=== PATIENT | female | born 1955 ===

== ENCOUNTER → 2024-03-06 | Outpatient (CLI) | payer MEDICARE ==
[2024-03-06 11:24] LABS: INR 0.9 (<1.2); Partial Thromboplastin Time 26.2 sec (22.0-30.0)
[2024-03-06 15:07] LABS: HCT 45.5 % (37.2-46.3); HGB 14.7 g/dL (12.0-15.0); MCH 28.7 pg (27.0-32.0); MCHC 32.3 g/dL (32.0-37.0); MCV 88.7 FL (80.0-97.0); Mean Platelet Volume 11.9 FL (9.5-12.2); NRBC Per 100 WBC 0 X 10*3/uL (0.00-0.01); Platelet Count 254 X 10*3/uL (140-440); RBC 5.13 X 10*6/uL (4.10-5.20); RDW 13.2 % (11.5-14.5); WBC 6.37 X 10*3/uL (4.50-10.00)
[2024-03-06 15:15] LABS: ALT 32 U/L (8-44); AST 23 U/L (13-35); Albumin 4.5 g/dL (3.8-4.9); Albumin/Globulin Ratio 1.73 Ratio (1.60-3.17); Alkaline Phosphatase 85 U/L (41-126); Blood Urea Nitrogen 12.4 mg/dL (9.0-27.0); Calcium 10.2 mg/dL (8.7-10.3); Carbon Dioxide 27.7 mmol/L (21.6-31.8); Chloride 100 mmol/L (96-109); Globulin 2.6 g/dL (1.6-3.3); Glucose 114 mg/dL (70-110); Sodium 141 mmol/L (135-145); Total Bilirubin 0.5 mg/dL (0.3-1.2); Total Protein 7.1 g/dL (6.2-8.2)
== END | disposition home or self-care (01) ==
LOC: LABWHC1 09:46
PROVIDERS: ATTEND Orthopaedic Surgery
DX: Z01.812 Encounter for preprocedural laboratory examination (principal)
CPT/HCPCS: 36415; 80053; 85027; 85610; 85730; 86850; 86900; 86901; 87070; 93005

== ENCOUNTER → 2024-03-21 | Outpatient (CLI) | payer MEDICARE | END | disposition home or self-care (01) | LOC: LABPAT 11:21 | PROVIDERS: ATTEND Orthopaedic Surgery | DX: Z01.812 Encounter for preprocedural laboratory examination (principal); Z22.322 Carrier or suspected carrier of Methicillin resistant Staphylococcus aureus | CPT/HCPCS: 86850; 86900; 86901 ==

== ENCOUNTER 2024-03-26 13:50 | Day surgery (SDC) | payer MEDICARE ==
[2024-03-21 09:34] VITALS: BMI 35.9
[~2024-03-26 13:50] MED LIST: HYDROcodone/APAP 7.5-325MG 1 EACH TAB PO PRN; HYDROmorphone 0.5 MG/0.5 ML SYRINGE IVP PRN; MAGNESIUM HYDROXIDE 2,400 MG/30 ML CUP PO PRN; MIDAZOLAM 2 MG/2 ML VIAL IV PRN; NALOXONE 0.4 MG/ML 1 ML VIAL IV PRN; ONDANSETRON 4 MG/2 ML VIAL IVP PRN; TRANEXAMIC 1,000 MG/100ML-NACL 1,000 MG in SALINE 1 100ML.BAG IVPB PRN
[2024-03-26] MEDS: LACTATED RINGERS 1,000 ML IV SCH (14:25)
[2024-03-26] MEDS: DEXAMETHASONE SOD PHOSPHATE 4 MG/ML 1 ML VIAL IV ONE (14:28)
[2024-03-26] MEDS: ONDANSETRON 4 MG/2 ML VIAL IVP ONE (14:29)
[2024-03-26] MEDS: ACETAMINOPHEN TAB 500 MG TAB PO PRN (14:29)
[2024-03-26] MEDS: GABAPENTIN 300 MG CAP PO PRN (14:30)
[2024-03-26] MEDS: MELOXICAM 7.5 MG TAB PO PRN (14:30)
[2024-03-26] MEDS: IV FLUID CONTINUATION 1,000 ML IV ONE (14:35)
[2024-03-26] MEDS: MIDAZOLAM 2 MG/2 ML VIAL IVP ONE (14:45)
[2024-03-26] MEDS: fentaNYL (PF) 50 MCG/ML 2 ML AMP IVP ONE (14:47)
--- NOTE | 2024-03-26 15:41 | P.ANPRN ---
Procedure Note - Anesthesia - Nerve Block Performed Left Julio Single Time Out Performed: Yes Date of Procedure: 03/26/24 Procedure Start Time: 14:45 Procedure Stop Time: 14:52 Location of Patient: PreOp Indication: Acute Post-Operative Pain, Requested by Surgeon Sedation Type: Sedate with meaningful contact maintained Preparation: Sterile Prep Position: Supine Needle Types: Pajunk Needle Gauge: 21 Ultrasound used to visualize needle placement: Yes Ultrasound used to observe medication spread: Yes Injectate: 0.5% Ropivacaine (see comment for volume) (20 ml + 10 ml NS + 4 mg Dexamethasone) Blood Aspirated: No Pain Paresthesia on Injection Noted: No Resistance on Injection: Normal Image Stored and Saved: Yes Events: Uneventful and Well Tolerated
[2024-03-26] MEDS ORDERED: MIDAZOLAM 2 MG/2 ML VIAL ONE (15:42)
[2024-03-26] MEDS ORDERED: fentaNYL (PF) 50 MCG/ML 2 ML AMP ONE (15:42)
[2024-03-26] MEDS ORDERED: DEXAMETHASONE SOD PHOSPHATE 4 MG/ML 1 ML VIAL ONE (15:42)
[2024-03-26] MEDS ORDERED: PHENYLEPHRINE-0.9% NACL SYG 1,000 MCG/10 ML SYRINGE ONE (15:42)
[2024-03-26] MEDS ORDERED: ROPIVACAINE 5 MG/ML 30 ML VIAL ONE (15:42)
[2024-03-26] MEDS ORDERED: TRANEXAMIC 1,000 MG/100ML-NACL PREMIX BAG ONE (15:42)
[2024-03-26] MEDS ORDERED: SODIUM CHLORIDE 0.9% (PF) 10 ML VIAL ONE (15:42)
[2024-03-26] MEDS ORDERED: PROPOFOL 10 MG/ML 20 ML VIAL IV ONE (15:42)
[2024-03-26] MEDS: ROPIVACAINE 5 MG/ML 30 ML VIAL MISCELLANE ONE ×2 (16:15→16:50)
[2024-03-26] MEDS: ceFAZolin 1,000 MG in SODIUM CHLORIDE 0.9% 1,000 ML IRRIGATION ONE (16:20)
[2024-03-26] MEDS: LACTATED RINGERS 1,000 ML IV ONE (16:29)
--- NOTE | 2024-03-26 16:55 | P.OP ---
Date of Procedure: 03/26/24 Preoperative Diagnosis: Severe osteoarthritis left hip Postoperative Diagnosis: Severe osteoarthritis left hip Procedure(s) Performed: Left total hip arthroplasty with a direct anterior approach Implants: [employer] Polarstem standard size 2 with a collar [employer] R3, 3 hole hemispherical acetabular shell, 48 mm [employer] Reflection 6.5 mm cancellus screw, 25 mm 2 [employer] R3, XLPE 20 acetabular liner [employer] Oxinium femoral head 32 mm, +0 All components were press-fit. The articulation is Oxinium on polyethylene. Anesthesia: spinal Surgeon: Raul Avalos Mobile Application Development Lead #1: Zina Sommer Estimated Blood Loss (ml): 200 Pathology: none sent Condition: stable Disposition: PACU Indications for Procedure: After failure of conservative treatment we discussed the surgical and nonsurgi yan treatment options at length. Patient wishes to proceed with a total hip arthroplasty with a direct anterior approach. Complications specific to this procedure were discussed at length, including but not limited to infection, leg length discrepancy, dislocation, nerve injury, and fracture. Covid-19 was also discussed at length with the patient, and they are aware of the current policies and procedures. The patient was given the option of delaying surgery, but they elect to proceed knowing these risks. Patient is aware of all these complications and informed consent was obtained Operative Findings: The operative findings are consistent with severe osteoarthritis of the left hip Description of Procedure: The patient was seen and evaluated in the preoperative area and the consent was reviewed. The operative site was marked with a skin marker. The patient verified the procedure and operative site. A SAMARA block was placed by anesthesia in the preoperative area. The patient was then brought to the operating room and given preoperative antibiotics intravenously. 1 g of Tranexamic acid was also given intravenously. A spinal anesthetic was administered by the anesthesia department. The patient was then placed on the Hunger[place] table with the bony prominences well-padded. The hip area was then prepped with a ChloraPrep solution and draped in the usual sterile fashion. A universal timeout was then performed, which confirmed the patient's name, surgical site, ALLERGIES, and procedure being performed on the consent. Next the incision site was located at 1 cm distal and 4 cm lateral to the anterior superior iliac spine. The skin and subcutaneous tissues were sharply incised. Incision was carefully dissected down to the fascia overlying the tensor fascia stcaey muscle. This fascia was then incised in line with the muscle fibers. Care was taken to stay laterally in order to avoid injuring the lateral femoral cu taneous nerve. Next, using blunt finger dissection, the tensor fascia stacey muscle was dissected off its investing fascia. The muscle was then carefully retracted laterally with a cobra retractor over the lateral neck of the femur. Next, the circumflex vessels were identified and cauterized using the Aquamantis device. The anterior hip capsule was then exposed. The capsule was then opened and an inverted T fashion. The retractors were then placed intracapsularly. The retractors were maintained intracapsular throughout the procedure. The proximal femur was then visualized. Fluoroscopic x-rays were then taken in order to evaluate the preoperative leg lengths. A small amount of traction was placed on the leg. The femoral neck was then osteotomized at the appropriate level above the lesser trochanter. A small wedge of bone was then removed from the remaining femoral head. Next, using a corkscrew the femoral head was removed from the acetabulum. On gross visual inspection, the femoral head had complete loss of articular cartilage and multiple periarticular osteophytes. The femoral head was then measured. Attention was then turned to the acetabulum. The acetabulum was exposed and any remaining labrum was excised. Sequential reaming of the acetabulum was performed using fluoroscopic guidance until there was a good bed of bleeding cancellus bone. When the appropriate size was reached, a trial was then placed. The position and fit of the trial was checked with fluoroscopy. The trial was then removed. Then, using fluoroscopic guidance, the final implant was impacted at 20 of anteversion and 40 of abduction, and fully seated in the acetabulum. 2 screws were then placed in the acetabulum. Again fluoroscopy was used to check position of the screws. Next, the liner was then impacted, with a 20 elevated liner located in the anterior superior quadrant. Component locking was confirmed. Attention was then directed to the femur. With the aid of the Hungerford table, the femur was externally rotated to approximately 130, extended, and adducted under the opposite leg. A side hook was then placed under the proximal femur, and the side hook elevator was used to elevate the proximal femur while releasing the capsule. Retractors were then placed. A capsular release was performed, as well as a release of the conjoined tendon, which afforded excellent visua lization of the proximal femur. Next, a box osteotome was used to lateralize the proximal femur. A factory hand was then used to locate the femoral canal. Sequential broaching was then performed with appropriate size which afforded excellent fixation in the proximal femur. A trial was then placed with appropriate head and neck, and the hip was gently reduced with the aid of the Hungerford table. Fluoroscopy was then used to check position of the components, as well as to evaluate the leg lengths and offset. The leg lengths and offset were measured as closely as possible to ensure stability of the hip. The hip was then gently dislocated and the trials were then removed. Final implants were then impacted and the hip was again reduced. Final fluoroscopic x-rays confirmed that the components were in anatomic position. The leg lengths and offset were measured and were found to coincide with the trial measurements. The hip was also taken through range of motion, and found to be stable. The hip was then copiously irrigated with antibiotic solution with pulsatile lavage. The hip was then irrigated with Irrisept solution. The soft tissues were then injected with a ropivacaine solution. A second dose of 1 g of Tranexamic acid was also given intravenously. The fascia was then closed with 2-0 strata fix suture. The subcutaneous tissue was closed with 3-0 Vicryl. The subcuticular tissue was closed with 3-0 strata fix suture. The skin was then closed with Exofin skin glue. After the glue and dried, and Optifoam silver impregnated dressing was applied. The patient was then transferred to the recovery room in stable condition. The urology physician assistant RAYNA Diaz was required due to the complexity of surgery, and the need for skilled surgical services asst for positioning, draping, exposure, retraction, and closure of the wound.
--- NOTE | 2024-03-26 17:43 | XR ---
EXAMINATION TYPE: XR Hip Limited LT DATE OF EXAM: 03/26/2024 CLINICAL HISTORY: Left hip pain and osteoarthritis. TECHNIQUE: Single AP portable view of the left hip is obtained immediately postoperatively. COMPARISON: None. FINDINGS: Metallic hardware from left hip arthroplasty is seen and appears satisfactory in alignment and position. Overlying soft tissue is unremarkable. IMPRESSION: Metallic hardware from left hip arthroplasty is satisfactory in position.
[2024-03-26] MEDS: SODIUM CHLORIDE 0.9% 1,000 ML IV SCH (18:22)
[2024-03-26] MEDS: ASPIRIN 325 MG TAB PO SCH (20:14)
[2024-03-26] MEDS: SENNOSIDES-DOCUSATE SODIUM 1 EACH TAB PO SCH (20:14)
[2024-03-26] MEDS: HYDROmorphone 0.5 MG/0.5 ML SYRINGE IVP PRN (20:15)
[2024-03-27] MEDS: HYDROcodone/APAP 7.5-325MG 1 EACH TAB PO PRN (00:32)
--- NOTE | 2024-03-27 08:01 | XR ---
Fluoroscopy History: LEFT ANTERIOR HIP Total left anterior hip 21 sec fl 1.2621 DAP
[2024-03-27 08:02] VITALS: BP 99/62; PULSE 85; RESP 14; TEMP 98.1
[2024-03-27] MEDS: LOSARTAN-HCTZ 50-12.5 MG 1 EACH TAB PO SCH (08:32)
[2024-03-27 08:46] LABS: Basophils # (A) 0.02 X 10*3/uL (0.00-0.10); Basophils % (A) 0.2 %; Eosinophils # (A) 0 X 10*3/uL (0.04-0.35); Eosinophils % (A) 0 %; HCT 39.5 % (37.2-46.3); HGB 12.6 g/dL (12.0-15.0); Lymphocytes # (A) 1.47 X 10*3/uL (0.90-5.00); Lymphocytes % (A) 12.2 %; MCH 28.5 pg (27.0-32.0); MCHC 31.9 g/dL (32.0-37.0); MCV 89.4 FL (80.0-97.0); Mean Platelet Volume 12.2 FL (9.5-12.2); Monocytes # (A) 0.48 X 10*3/uL (0.20-1.00); NRBC Per 100 WBC 0 X 10*3/uL (0.00-0.01); Neutrophils # (A) 10.05 X 10*3/uL (1.80-7.70); Neutrophils % (A) 83.3 %; Platelet Count 226 X 10*3/uL (140-440); RBC 4.42 X 10*6/uL (4.10-5.20); RDW 12.8 % (11.5-14.5); WBC 12.06 X 10*3/uL (4.50-10.00)
--- NOTE | 2024-03-27 10:39 | P.DS ---
Providers Expected date of discharge: 03/27/24 Attending physician: Raul Avalos Consults: 03/26/24 13:18 Consult Physician Routine Consulting Provider: Mya Knapp Consult Reason/Comments: medical management Do you want consulting provider notified?: Yes Primary care physician: Nabil Figueroa DO - Discharge Diagnosis(es) (1) Osteoarthritis of left hip Current Visit: Yes Status: Acute (2) S/P total hip arthroplasty Current Visit: Yes Status: Acute Hospital Course: This is a 68-year-old female with known history of degenerative arthritis of the left hip. The patient presented for evaluation as an outpatient. After discussion and consideration patient elects to proceed with total hip arthroplasty. The patient is seen preoperatively by Dr. Avalos and medically cleared for surgery by their primary care physician. Patient is admitted to [facility] on 03/26/2024 for total hip arthroplasty. The procedure is performed without complication or sequelae. The patient is doing well postoperatively. Labs and vital signs are stable on day of discharge. On day of discharge patient's hip incision is healing well. There is minimal erythema. There is no drainage noted at this time. There is minimal soft tissue swelling to the hip and thigh. Patient has full foot and ankle motion without difficulty or pain. Calf is soft and nontender to palpation. Neurovascular status to the left lower extremity is intact. Patient is disc harged home in good condition. Please see med rec for accurate list of home medications. Plan - Discharge Summary Discharge Rx Participant: No New Discharge Prescriptions: New Aspirin 325 mg PO BID #60 tab HYDROcodone/APAP 7.5-325MG [[place] 7.5-325] 1 - 2 tab PO Q6H PRN #32 tab PRN Reason: Pain Sennosides [Senokot] 2 tab PO DAILY PRN #60 tablet PRN Reason: Constipation No Action Ibuprofen [Advil] 200 mg PO Q6HR PRN PRN Reason: Pain Magnesium (Unknown Dose) 1 tab PO DAILY Losartan/Hydrochlorothiazide [Losartan-Hctz 50-12.5 mg Tab] 1 tab PO QAM Alendronate Sodium [Fosamax] 70 mg PO SARMIENTO Acetaminophen [Tylenol Extra Strength] 500 - 1,000 mg PO Q4-6H PRN PRN Reason: Pain Discharge Medication List Acetaminophen [Tylenol Extra Strength] 500 - 1,000 mg PO Q4-6H PRN 03/07/24 [History] Alendronate Sodium [Fosamax] 70 mg PO SARMIENTO 03/07/24 [History] Ibuprofen [Advil] 200 mg PO Q6HR PRN 03/07/24 [History] Losartan/Hydrochlorothiazide [Losartan-Hctz 50-12.5 mg Tab] 1 tab PO QAM 03/07/24 [History] Magnesium (Unknown Dose) 1 tab PO DAILY 03/07/24 [History] Aspirin 325 mg PO BID #60 tab 03/27/24 [Rx] HYDROcodone/APAP 7.5-325MG [[place] 7.5-325] 1 - 2 tab PO Q6H PRN #32 tab 03/27/24 [Rx] Sennosides [Senokot] 2 tab PO DAILY PRN #60 tablet 03/27/24 [Rx] Follow up Appointment(s)/Referral(s): [facility], [NON-STAFF] - 1 Week ([facility] will call you to arrange a visit) Raul Avalos DO [Doctor of Osteopathic Medicine] - 2 Weeks Activity/Diet/Wound Care/Special Instructions: Weightbearing as tolerated with walker. Leave dressing intact. Dressing may be removed by home care nurse or by patient in 7 days. Then change dressing twice daily until follow up. May shower with initial dressing intact and after removal. If dressing become saturated, please remove. Please take aspirin 325mg twice daily for 30 days to prevent blood clots. Recommend use of compression stockings daily until follow up to help prevent swelling and blood clots. May remove at night before sleeping. Please follow-up with [facility] in 2 weeks and call with any questions or concerns, . Discharge Disposition: HOME WITH HOME HEALTH SERVICES
--- NOTE | 2024-03-27 11:06 | FL ---
EXAMINATION TYPE: FL guidance operating room DATE OF EXAM: 03/26/2024 HISTORY: Fluoroscopy time Total dose area product (DAP) in uGy*m?, mGy*cm? (or similar): 1.2621 IMPRESSION: 1. Fluoroscopy time.
--- NOTE | 2024-03-29 07:47 | P.CONS ---
History of Present Illness - Reason for Consult Consult date: 03/27/24 - History of Present Illness This is a pleasant 68 year old female with medical history of hypertension, osteoarthritis, never smoker. Patient comes in for scheduled left hip arthroplasty. She is evaluated today postoperative day #1. She is not having any complaints of chest pain, shortness of breath. Denies any nausea vomiting or diarrhea. Patient has been tolerating diet, passing gas. Reports being up to the bathroom and has worked with physical therapy. She is doing well and will be considered for discharge home later today. Patient is maintained on losartan/hydrochlorothiazide tablet on an outpatient basis blood pressures have been running in the 99/62 range and discussed with patient holding this medication to avoid further postoperative hypotension and risk for falls. Patient is agreeing with this plan and will continue to monitor her blood pressure at home on discharge. REVIEW OF SYSTEMS: CONSTITUTIONAL: No fever, no malaise, no fatigue. HEENT: No recent visual problems or hearing problems. Denied any sore throat. CARDIOVASCULAR: No chest pain, orthopnea, PND, no palpitations, no syncope. PULMONARY: No shortness of breath, no cough, no hemoptysis. GASTROINTESTINAL: No diarrhea, no nausea, no vomiting, no abdominal pain. NEUROLOGICAL: No headaches, no weakness, no numbness. HEMATOLOGICAL: Denies any bleeding or petechiae. GENITOURINARY: Denies any burning micturition, frequency, or urgency. MUSCULOSKELETAL/RHEUMATOLOGICAL: Denies any joint pain, swelling, or any muscle pain. ENDOCRINE: Denies any polyuria or polydipsia. The rest of the 14-point review of systems is negative. PHYSICAL EXAMINATION: GENERAL: The patient is alert and oriented x3, not in any acute distress. Well developed, well nourished. HEENT: Pupils are round and equally reacting to light. EOMI. No scleral icterus. No conjunctival pallor. Normocephalic, atraumatic. No pharyngeal erythema. No thyromegaly. CARDIOVASCULAR: S1 and S2 present. No murmurs, rubs, or gallops. PULMONARY: Chest is clear to auscultation, no wheezing or crackles. ABDOMEN: Soft, nontender, nondistended, normoactive bowel sounds. No palpable organomegaly. MUSCULOSKELETAL: No joint swelling or deformity. EXTREMITIES: No cyanosis, clubbing, or pedal edema. NEUROLOGICAL: Gross neurological examination did not reveal any focal deficits. SKIN: No rashes. Assessment and plan Postoperative day #1 let hip arthroplasty on DVT prophylaxis per orthopedics with aspirin 325 mg BID for the next 30 days Hypertension patient is low/normal as above recommending to hold off on her blood pressure medication and monitor on an outpatient basis. can resume when systolic is above 130s this is to avoid further postoperative hypotension Hx of asthma, stable no acute exacerbation Leukocytosis reactive to surgery and expected GI prophylaxis DVT prophylaxis Plan Patient is medically clear for discharge home today with above mentioned recommendations. Continue with incentive spirometer 10 x an hour while awake. Follow up with PCP in 1 to 2 days. The impression and plan of care has been dictated by Nurse Devonte Pr actitioner as directed. Dr. Naresh MD I have performed a history and physical examination and medical decision making of this patient, discussed the same with the dictator, and agree with the dicta tors assessment and plan as written, documented as a scribe. Based on total visit time, I have performed more than 50% of this visit. Past Medical History Past Medical History: Hearing Disorder / Deafness, Hypertension, Osteoarthritis (OA) Additional Past Medical History / Comment(s): Very mildhearing loss. Bilateral ankle swelling. History of Any Multi-Drug Resistant Organisms: None Reported Past Surgical History: Hysterectomy, Orthopedic Surgery Additional Past Surgical History / Comment(s): Cataract surgery. TLH. Past Anesthesia/Blood Transfusion Reactions: No Reported Reaction, Motion Sickness Past Psychological History: No Psychological Hx Reported Smoking Status: Never smoker Past Alcohol Use History: Occasional Past Drug Use History: None Reported - Past Family History Father Family Medical History: Cancer Sister(s) Family Medical History: Cancer Additional Family Medical History / Comment(s): Breast cancer. Medications and Allergies Home Medications Medication Instructions Recorded Confirmed Type Acetaminophen [Tylenol Extra 500 - 1,000 mg PO Q4-6H PRN 03/07/24 03/26/24 History Strength] Alendronate Sodium [Fosamax] 70 mg PO SARMIENTO 03/07/24 03/26/24 History Ibuprofen [Advil] 200 mg PO Q6HR PRN 03/07/24 03/21/24 History Losartan/Hydrochlorothiazide 1 tab PO QAM 03/07/24 03/26/24 History [Losartan-Hctz 50-12.5 mg Tab] Magnesium (Unknown Dose) 1 tab PO DAILY 03/07/24 03/21/24 History Aspirin 325 mg PO BID #60 tab 03/27/24 Rx HYDROcodone/APAP 7.5-325MG [[place] 1 - 2 tab PO Q6H PRN #32 tab 03/27/24 Rx 7.5-325] Sennosides [Senokot] 2 tab PO DAILY PRN #60 tablet 03/27/24 Rx Allergies Allergy/AdvReac Type Severity Reaction Status Date / Time No Known Allergies Allergy Verified 03/26/24 14:09 Physical Exam Vitals: Vital Signs Temp Pulse Pulse Resp BP BP Pulse Ox 03/27/24 08:22 92 L 03/27/24 07:38 98.1 F 85 14 99/62 90 L 03/27/24 01:27 97.7 F 91 16 117/73 93 L 03/26/24 21:37 89 129/78 94 L 03/26/24 21:07 104 H 123/80 03/26/24 20:37 83 137/85 83 L 03/26/24 20:22 65 139/81 94 L 03/26/24 20:09 65 77/42 96 03/26/24 19:52 65 137/77 92 L 03/26/24 19:42 97.6 F 69 18 143/79 93 L 03/26/24 19:37 97.9 F 65 143/79 93 L 03/26/24 18:30 82 16 134/64 99 03/26/24 18:15 62 16 116/65 95 03/26/24 18:01 61 16 114/65 95 03/26/24 17:45 62 16 105/57 95 03/26/24 17:30 74 16 107/55 95 03/26/24 17:17 97.9 F 62 16 93/46 95 03/26/24 15:01 82 16 111/54 95 03/26/24 14:40 83 16 135/60 96 03/26/24 14:13 97.5 F L 99 16 131/82 99 Intake and Output 03/26/24 03/27/24 03/27/24 22:59 06:59 14:59 Intake Total 1451 Output Total 200 Balance 1251 Intake: IV 1451 Output: Estimated Blood Loss 200 Other: Voiding Method Toilet Toilet # Voids 1 Weight 87.5 kg Results CBC & Chem 7: 03/27/24 03:53 Labs: Abnormal Lab Results - Last 24 Hours (Table) 03/27/24 Range/Units 03:53 WBC 12.06 H (4.50-10.00) X 10*3/uL MCHC 31.9 L (32.0-37.0) g/dL Neutrophils # 10.05 H (1.80-7.70) X 10*3/uL Eosinophils # 0 L (0.04-0.35) X 10*3/uL Assessment and Plan Time with Patient: Less than 30
== END 2024-03-27 12:51 | disposition home health service (06) ==
LOC: OR 13:50 → 4SSUR 17:09 → OR 03-27 12:51
PROVIDERS: ATTEND Orthopaedic Surgery
DX: M16.12 Unilateral primary osteoarthritis, left hip (principal); G89.18 Other acute postprocedural pain; Z79.82 Long term (current) use of aspirin; Z79.899 Other long term (current) drug therapy
CPT/HCPCS: 94760; 97161; 97166; 64447; 85025; 73501; 27130; C1776; J2250; J1100; J0690 ×3; J2405; J3010; J2795; J1170